=== PATIENT | male | born 1975 | race African-American/Black ===

== ENCOUNTER 2021-09-19 06:02 | Emergency (ER) | payer OTHER ==
[~2021-09-19] VITALS: Ht 177.8 cm; Wt 97.5 kg
[2021-09-19 06:15] VITALS: BP 157/90
--- NOTE | 2021-09-19 06:18 | NUR ---
BIBS C/O UPPERBACK PAIN AND LEFT SIDED "PEC MUSCLE" PAIN. 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 PATIENT ALERT AND ORIENTED X3. AMBULATORY WITH NON LABORED BREATHING IN BED 02 ON MONITOR AWAITING MD RODRIGUES
== END 2021-09-19 06:40 | disposition home or self-care (01) ==
LOC: ER 06:15
DX: N64.4 Mastodynia (principal); M54.6 Pain in thoracic spine; J45.909 Unspecified asthma, uncomplicated